=== PATIENT | male | born 1970 | race African-American/Black ===

== ENCOUNTER 2018-06-05 19:25 | Inpatient (IN) | payer BC ==
[2018-06-05] MEDS ORDERED: ALBUTEROL 0.083% (NEB) 2.5 MG/3 ML AMP (19:54)
[2018-06-05] MEDS ORDERED: IPRATROPIUM (NEB) 0.5 MG/2.5 ML AMP (19:54)
[2018-06-05] MEDS ORDERED: DEXAMETHASONE 10 MG/ML 1 ML INJ IV ×2 (20:05→20:07)
[2018-06-05] MEDS: MAGNESIUM SULFATE 2 GM/50 ML 50 ML IVPB (20:07)
[2018-06-05 20:15] LABS: ADD MAN DIFF? NO
[2018-06-05 20:17] LABS: BASOPHIL # 0.1 10^3/ul (0.0-0.1); BASOPHILS % 0.6 % (0.0-2.0); EOSINOPHILS # 0.8 10^3/ul (0.0-0.5); HEMATOCRIT 52.9 % (42.0-52.0); HEMOGLOBIN 17.6 g/dl (14.0-18.0); LYMPHOCYTES # 2.3 10^3/ul (0.8-2.9); LYMPHOCYTES % 22.2 % (15.0-51.0); MEAN CORPUSCULAR HEMOGLOBIN 31.8 pg (29.0-33.0); MEAN CORPUSCULAR HGB CONC 33.3 g/dl (32.0-37.0); MEAN CORPUSCULAR VOLUME 95.5 fl (82.0-101.0); MEAN PLATELET VOLUME 11.7 fl (7.4-10.4); MONOCYTE # 0.7 10^3/ul (0.3-0.9); MONOCYTES % 6.2 % (0.0-11.0); NEUTROPHIL # 6.5 10^3/ul (1.6-7.5); NEUTROPHILS % 62.7 % (39.0-77.0); PLATELET COUNT 199 10^3/UL (140-415); RED BLOOD COUNT 5.54 10^6/ul (4.70-6.10)
[2018-06-05 20:17] LABS: WHITE BLOOD COUNT 10.4 10^3/ul (4.8-10.8)
[2018-06-05 20:23] LABS: ANION GAP 12 (5-13); BLOOD UREA NITROGEN 5 mg/dl (7-20); CALCIUM 9.1 mg/dl (8.4-10.2); CARBON DIOXIDE 28 mmol/L (21-31); CHLORIDE 102 mmol/L (97-110); CREATININE 0.86 mg/dl (0.61-1.24); Estimated GFR > 60 mL/min (>60); GLUCOSE 139 mg/dl (70-220); POTASSIUM 3.9 mmol/L (3.5-5.1); SODIUM 142 mmol/L (135-144)
[2018-06-05] MEDS: ALBUTEROL 0.083% (NEB) 2.5 MG/3 ML AMP NEB (20:25)
[2018-06-05] MEDS: IPRATROPIUM (NEB) 0.5 MG/2.5 ML AMP INH (20:25)
[2018-06-05] MEDS: IPRATROPIUM (NEB) 0.5 MG/2.5 ML AMP NEB (20:30)
[2018-06-05 20:39] LABS: TROPONIN-I < 0.012 ng/ml (0.000-0.120)
[2018-06-05] MEDS: MAG SULFATE 2GM IN 50 ML IVPB (21:21)
[2018-06-05] MEDS: LEVOFLOXACIN 750MG/D5W (PMX) 150 ML IVPB (21:22)
[2018-06-05] MEDS: DEXAMETHASONE 4 MG/ML 5 ML INJ IV (21:34)
[2018-06-05] MEDS ORDERED: ONDANSETRON 4 MG INJ IV (22:00)
[2018-06-05] MEDS: ALBUTEROL 0.5% (NEB) 2.5 MG/0.5 ML AMP INH (22:12)
[2018-06-06] MEDS ORDERED: NON-FORMULARY/PATIENT OWN MED (Mometasone-Formoterol (Dulera) 2 PUFFS) INHALATION
[2018-06-06] MEDS: GUAIFENESIN/DM 5ML CUP PO ×3 (00:19→20:41)
[2018-06-06] MEDS: ACETAMINOPHEN 325 MG TAB PO ×3 (00:20→17:53)
[2018-06-06] MEDS: METHYLPREDNISOLONE 125 MG INJ IV ×5 (00:20→23:51)
[2018-06-06] MEDS: MONTELUKAST 10 MG TAB PO ×2 (02:08→20:31)
[2018-06-06] MEDS: ALBUTEROL/IPRATROPIUM (NEB) 3 ML AMP HHN ×2 (05:42→21:11)
[2018-06-06 05:53] LABS: ADD MAN DIFF? NO
[2018-06-06 05:57] LABS: ABNORMAL IP MESSAGE 1; BASOPHILS % 0.2 % (0.0-2.0); HEMATOCRIT 47.6 % (42.0-52.0); HEMOGLOBIN 15.9 g/dl (14.0-18.0); LYMPHOCYTES # 0.4 10^3/ul (0.8-2.9); LYMPHOCYTES % 7.4 % (15.0-51.0); MEAN CORPUSCULAR HEMOGLOBIN 31.9 pg (29.0-33.0); MEAN CORPUSCULAR HGB CONC 33.4 g/dl (32.0-37.0); MEAN CORPUSCULAR VOLUME 95.6 fl (82.0-101.0); MEAN PLATELET VOLUME 11.6 fl (7.4-10.4); MONOCYTE # 0.1 10^3/ul (0.3-0.9); MONOCYTES % 1.3 % (0.0-11.0); NEUTROPHIL # 5.4 10^3/ul (1.6-7.5); NEUTROPHILS % 90.8 % (39.0-77.0); PLATELET COUNT 184 10^3/UL (140-415); POSITIVE DIFF @See below; RED BLOOD COUNT 4.98 10^6/ul (4.70-6.10); RED CELL DISTRIBUTION WIDTH 13.1 % (11.5-14.5)
[2018-06-06 05:57] LABS: WHITE BLOOD COUNT 5.9 10^3/ul (4.8-10.8)
[2018-06-06] MEDS: PANTOPRAZOLE (EC) 40 MG TAB PO (06:00)
[2018-06-06 06:30] LABS: ANION GAP 16 (5-13); BLOOD UREA NITROGEN 9 mg/dl (7-20); CARBON DIOXIDE 21 mmol/L (21-31); CHLORIDE 104 mmol/L (97-110); CREATININE 0.84 mg/dl (0.61-1.24); Estimated GFR > 60 mL/min (>60); GLUCOSE 152 mg/dl (70-220); SODIUM 141 mmol/L (135-144)
[2018-06-06] MEDS: ENOXAPARIN 40 MG/0.4 ML SYG SC (09:00)
[2018-06-06] MEDS: LORATADINE 10 MG TAB PO (09:06)
[2018-06-06] MEDS: TIOTROPIUM 18 MCG CAPSULE INHA DEV INH (09:06)
[2018-06-06] MEDS: AMLODIPINE 10 MG TAB PO (09:06)
[2018-06-06] MEDS: LEVOFLOXACIN 500MG/D5W (PMX) 100 ML IVPB (20:31)
[2018-06-06] MEDS ORDERED: MONTELUKAST 10 MG TAB PO (21:00)
[2018-06-07] MEDS: ALBUTEROL/IPRATROPIUM (NEB) 3 ML AMP HHN ×2 (04:51→13:57)
[2018-06-07] MEDS: METHYLPREDNISOLONE 125 MG INJ IV ×4 (06:01→23:34)
[2018-06-07] MEDS: PANTOPRAZOLE (EC) 40 MG TAB PO (06:01)
[2018-06-07 06:02] LABS: ADD MAN DIFF? NO
[2018-06-07 06:03] LABS: BASOPHILS % 0.1 % (0.0-2.0); HEMATOCRIT 46.3 % (42.0-52.0); HEMOGLOBIN 15.2 g/dl (14.0-18.0); LYMPHOCYTES # 0.7 10^3/ul (0.8-2.9); LYMPHOCYTES % 4.7 % (15.0-51.0); MEAN CORPUSCULAR HEMOGLOBIN 31.7 pg (29.0-33.0); MEAN CORPUSCULAR HGB CONC 32.8 g/dl (32.0-37.0); MEAN CORPUSCULAR VOLUME 96.5 fl (82.0-101.0); MEAN PLATELET VOLUME 12.1 fl (7.4-10.4); MONOCYTE # 0.6 10^3/ul (0.3-0.9); MONOCYTES % 4.3 % (0.0-11.0); NEUTROPHIL # 13.2 10^3/ul (1.6-7.5); NEUTROPHILS % 90.4 % (39.0-77.0); PLATELET COUNT 161 10^3/UL (140-415); RED CELL DISTRIBUTION WIDTH 13.1 % (11.5-14.5)
[2018-06-07 06:03] LABS: WHITE BLOOD COUNT 14.6 10^3/ul (4.8-10.8)
[2018-06-07 06:29] LABS: ANION GAP 10 (5-13); BLOOD UREA NITROGEN 11 mg/dl (7-20); CALCIUM 9.5 mg/dl (8.4-10.2); CARBON DIOXIDE 25 mmol/L (21-31); CHLORIDE 104 mmol/L (97-110); CREATININE 0.71 mg/dl (0.61-1.24); Estimated GFR > 60 mL/min (>60); GLUCOSE 127 mg/dl (70-220); POTASSIUM 4.5 mmol/L (3.5-5.1); SODIUM 139 mmol/L (135-144)
[2018-06-07 07:07] LABS: HEMOGLOBIN A1C 5.2 % (0-5.9)
[2018-06-07] MEDS: AMLODIPINE 10 MG TAB PO (08:34)
[2018-06-07] MEDS: LORATADINE 10 MG TAB PO (08:34)
[2018-06-07] MEDS: TIOTROPIUM 18 MCG CAPSULE INHA DEV INH (08:35)
[2018-06-07] MEDS: ENOXAPARIN 40 MG/0.4 ML SYG SC (08:36)
[2018-06-07] MEDS ORDERED: HYDROCODONE/HOMATROPINE 5ML CUP PO (16:00)
[2018-06-07] MEDS: GUAIFENESIN/DM 5ML CUP PO (17:35)
[2018-06-07] MEDS: MONTELUKAST 10 MG TAB PO (20:12)
[2018-06-07] MEDS: LEVOFLOXACIN 500MG/D5W (PMX) 100 ML IVPB (20:12)
[2018-06-07] MEDS: CEPASTAT LOZENGE MT (20:48)
[2018-06-07] MEDS: ZOLPIDEM 5 MG TAB PO (21:59)
[2018-06-08] MEDS: PANTOPRAZOLE (EC) 40 MG TAB PO (05:47)
[2018-06-08] MEDS: METHYLPREDNISOLONE 125 MG INJ IV ×2 (05:47→12:31)
[2018-06-08] MEDS: GUAIFENESIN/DM 5ML CUP PO (08:15)
[2018-06-08] MEDS: TIOTROPIUM 18 MCG CAPSULE INHA DEV INH (08:46)
[2018-06-08] MEDS: AMLODIPINE 10 MG TAB PO (08:47)
[2018-06-08] MEDS: ENOXAPARIN 40 MG/0.4 ML SYG SC (08:47)
[2018-06-08] MEDS: LORATADINE 10 MG TAB PO (08:47)
[2018-06-08] MEDS: ALBUTEROL/IPRATROPIUM (NEB) 3 ML AMP HHN (12:12)
== END 2018-06-08 16:35 | disposition home or self-care (01) | DRG 192 ==
LOC: E/R 19:25 → 2NE 21:43
DX: J44.1 Chronic obstructive pulmonary disease with (acute) exacerbation (principal); I10 Essential (primary) hypertension; R73.9 Hyperglycemia, unspecified; G47.00 Insomnia, unspecified; D72.829 Elevated white blood cell count, unspecified; Z87.891 Personal history of nicotine dependence
CPT/HCPCS: 71045; 80048; 83036; 84484; 85025; 93005; 94640; 94644; 94645; 94660; 94664; 96365; 96368; 96375; 99291-25